=== PATIENT | male | born 1955 | race Caucasian/White ===

== ENCOUNTER 2022-04-08 15:55 | Emergency (ER) | payer BC, SELFPAY ==
[2022-04-08 16:11] VITALS: BP 155/87; PULSE 63; RESP 20; TEMP 36.6; O2SAT 96; BMI 45.9
--- NOTE | 2022-04-08 16:17 | ED_ITS ---
HPI - General Adult General Time Seen by Provider: 16:17 Date Seen: 04/08/22 Chief complaint: Extremity Pain/Injury, Upper Stated complaint: Pain Left hand and Wrist Time Seen by Provider: 04/08/22 15:56 Source: patient and RN notes reviewed Mode of arrival: ambulatory Limitations: no limitations History of Present Illness HPI narrative: Patient is a 66-year-old male that was referred in by the triage nurse from clinic. He has been having intermittent left finger/hand numbness and tingling like it has fallen asleep. Today he started noticing pain in the wrist area that went up just into the forearm. He takes his thumb and forefinger and points out a segment from the base of the hand to the distal left forearm where he was feeling some pain. The symptoms are intermittent. He was worried about a stroke, reports that the triage nurse told him to come in immediately. He is a diesel truck mechanic. He has noticed this with driving but not always. It is intermi ttent in nature. No motor component. He also notes that his chest is just felt heavy for the last maybe 4-5 days. He admits that he maybe thought about it more after starting to have these left wrist symptoms with pain. There is no cough or cold symptoms, no recent COVID diagnosis, no fevers chills, no shortness of breath, no sense of palpitations or irregular heartbeat. He states he recently had elevated blood pressure in clinic and they did do an echo, sounds as if it required definity. He states he was told that this looked good. He has had no prior cardiac history. 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 Does not have any known diagnosed cardiopulmonary issues to date. He does note that he has some chronic allergies which he has been to sheeter operator and they cannot define the etiology. Related Data Home Medications Medication Instructions Recorded Confirmed amlodipine 10 mg tablet mg 04/08/22 atenolol 100 mg tablet mg 04/08/22 cyclobenzaprine 10 mg tablet mg 04/08/22 fluticasone propionate 50 intranasal 04/08/22 mcg/actuation nasal spray,suspension furosemide 40 mg tablet mg 04/08/22 losartan 50 mg tablet mg 04/08/22 metformin 500 mg tablet mg 04/08/22 montelukast 10 mg tablet mg 04/08/22 naproxen 500 mg tablet mg 04/08/22 omeprazole 20 mg capsule,delayed mg 04/08/22 release sildenafil 100 mg tablet mg 04/08/22 simvastatin 10 mg tablet mg 04/08/22 terazosin 5 mg capsule mg 04/08/22 Allergies Allergy/AdvReac Type Severity Reaction Status Date / Time No Known Drug Allergies Allergy Verified 04/08/22 16:07 Review of Systems Status of ROS: Reports: 10 or more systems reviewed and unremarkable except as noted in History and below PFSH PFSH Social History Smoking Status: Unknown if ever smoked How often do you have a drink containing alcohol: never AUDIT-C Alcohol total score: 0 Non-prescribed substance use: denies use Exam Const: Vital Signs, click to edit/add: Vital Signs - 24 hr 04/08/22 16:11 04/08/22 17:34 Temperature 97.9 F 97.9 F Pulse Rate [Right Pulse Oximeter] 63 63 Respiratory Rate 20 20 Blood Pressure [Ri ght Upper Arm] 155/87 H 155/87 H Pulse Oximetry 96 Oxygen Delivery Me thod Room Air Documenting provider has reviewed patient's vital signs: yes Common normals: no apparent distress, oriented x3, no limitations, healthy appearing, alert and well nourished General appearance: cooperative, comfortable and well kempt Nutritional appearance: obese HENMT: Common normals: normocephalic, head/scalp atraumatic, hearing grossly normal bilaterally and external ears normal Head and scalp: normocephalic and atraumatic External ear: external ears normal Eye: Common normals: PERRL, EOMs intact bilaterally, conjunctivae normal and no scleral icterus Conjunctiva: conjunctiva(e) normal Pupil: PERRL Neck & C-Spine: Common normals: full ROM (Neck is very thick), no lymphadenopathy, supple, no meningeal signs, no JVD and thyroid normal Thyroid: thyroid normal Lymph: Lymphatic: no lymphadenopathy noted Resp: Common normals: normal respiratory effort, no retractions, no use of accessory muscles and clear to auscultation bilaterally Auscultation: clear to auscultation bilaterally Cardio: Common normals: no JVD, regular rate, regular rhythm, S1 normal heart sound, S2 normal heart sound, no gallops, no clicks and no murmurs Rate: reg ular rate Rhythm: regular rhythm Heart sounds: S1 normal and S2 normal Extremity: Other: Has about 2+ pitting edema of both lower extremities, symmetric, no overlying skin changes. On further questioning, patient states this edema will come and go. He does note changes with eating food and if his legs are dependent a lot with driving. This is not a new finding. Neuro: Moy Coma Scale: document GCS findings Moy coma scale eye opening: Spontaneous (4) [place] coma scale verbal response: Orientated (5) [place] coma scale motor response: Obey commands (6) [place] coma scale total score: 15 Common normals: oriented x3, CN's II-XII intact bilaterally, moves all extremities and gait normal Sensorium/orientation: alert Meningeal signs: no meningeal signs Other: Patient has positive Phalen's more so than Tinel's but Tinel's is positive on the left wrist. When he came in, was not have any numbness tingling and had normal sensation. Did develop numbness and tingling with the canals using repetitive tapping with a reflex hammer and a positive Phalen's on the left, negative on right. No noted muscle wasting, no weakness noted. Psych: Appearance: well kempt Skin: Common normals: no rashes or lesions noted, no wounds and skin turgor normal General skin exam: no rashes or lesions noted and turgor normal Course Course Hospital Course: Reviewed with patient that we could provide a wrist splint for initial treatment of the carpal tunnel but he declined. Reviewed with him that ultimately he needed to follow up with Orthopedics for further evaluation management. He states he can deal with the carpal tunnel, he is not worried about that. He was worried about having a stroke. Reviewed with him that his current arm symptoms are not from a stroke. We did go over stroke signs and symptoms. Did review with him that with his complaint of chest heaviness I did think we should proceed with some basic blood work included a troponin, EKG and chest x-ray. He is hemodynamically stable with just mildly elevated blood pressure not requiring any intervention. He is oxygenating excellently. He agrees to this evaluation. Reevaluation(s) Reevaluation #1: Reviewed with patient that is CBC, EKG, troponin and my preliminary review of his chest x-ray are without any acute pathology. He would like to go home. I certainly can contact him with any abnormalities in the radiology reading of the chest x-ray or with his metabolic panel. Am doubtful that there will be any significant issues which is why I will allow him to discharge before they are back. He did question why he had the sense of chest heaviness. It is possible it might just be his allergies which seem to be bothering him right now. I certainly do not appreciate any evidence of any infection or any abnormality on the chest x-ray. Again I will contact him if the radiologist sees anything. Time: 17:23 Vital Signs Vital signs: Initial Vital Signs Temperature 97.9 F 04/08/22 16:11 Temperature Source Temporal Artery Scan 04/08/22 16:11 Pulse Rate 63 04/08/22 16:11 Respiratory Rate 20 04/08/22 16:11 Blood Pressure 155/87 H 04/08/22 16:11 Blood Pressure Mean 109 04/08/22 16:11 Blood Pressure Position Sitting 04/08/22 16:11 Pulse Oximetry 96 04/08/22 16:11 Oxygen Delivery Method 04/08/22 16:11 Vital Signs Temperature 97.9 F 04/08/22 16:11 Pulse Rate 63 04/08/22 16:11 Respiratory Rate 20 04/08/22 16:11 Blood Pressure 155/87 H 04/08/22 16:11 Pulse Oximetry 96 04/08/22 16:11 Oxygen Delivery Method 04/08/22 16:11 Temperature 97.9 F 04/08/22 17:34 Pulse Rate 63 04/08/22 17:34 Respiratory Rate 20 04/08/22 17:34 Blood Pressure 155/87 H 04/08/22 17:34 Pulse Oximetry 96 04/08/22 16:11 Oxygen Delivery Method 04/08/22 16:11 Medical Decision Making Lab Data Lab results reviewed: Yes I reviewed the patient's lab results Labs: Lab Results 04/08/22 04/08/22 04/08/22 Range/Units 16:43 16:43 16:43 WBC 10.03 (4.50-11.00) K/uL RBC 4.81 (4.30-5.90) m/uL Hgb 14.6 (13.5-17.5) gm/dL Hct 43.1 (37.0-53.0) % MCV 90 (80-100) fL MCH 30 (26-34) pg MCHC 34 (32-36) gm/dL RDW Coeff of Kelvin 12.1 (11.5-15.5) % Plt Count 230 (140-440) K/uL Neut % (Auto) 65.6 (42.0-72.0) % Lymph % (Auto) 18.7 L (20-44) % [place]berry % (Auto) 11.1 H (0.0-11.0) % Eos % (Auto) 3.2 (0.0-7.0) % Baso % (Auto) 0.6 (0.0-3.0) % Neut # (Auto) 6.58 (1.7-7.0) K/uL Lymph # (Auto) 1.90 (0.90-2.90) K/uL [place]berry # (Auto) 1.10 H (0.00-0.90) K/UL Eos # (Auto) 0.32 (0.00-0.50) K/uL Baso # (Auto) 0.06 (0.00-0.30) K/uL Abs Immat Gran (auto) 0.08 (0.00-0.30) K/uL Sodium 135 (135-149) mmol/L Potassium 3.8 (3.6-5.1) mmol/L Chloride 100 (96-114) mmol/L Carbon Dioxide 25 (20-32) mmol/L BUN 15 (7-30) mg/dL Creatinine 0.9 (0.5-1.5) mg/dL Estimated Creat Clear 74.01 Estimated GFR 94 ml/min Glucose 101 (60-115) mg/dL Calcium 9.0 (8.4-10.6) mg/dL POC Troponin I 0.00 L (0.01-0.04) ng/ml Imaging Data Chest x-ray: Attestation: I have reviewed the pertinent imaging results. My impression: My preliminary review of his two-view chest x-ray is without any acute cardiopulmonary abnormality. Will await Radiology over-read. Radiologist's impression: Patient: BERNA NELSON Facility:?[facility] Patient ID:?[id number] Site Patient ID:?[id number]. Site :?[id number] Study:?XRay Chest 2 VIEW-04/08/2022 5:16:35 PM Ordering Physician:Martha Shaikh Final Report: INDICATION: Chest heaviness. TECHNIQUE: Chest 2 views. COMPARISON: None. FINDINGS: Cardiovascular and mediastinum: Heart size and vasculature are normal in caliber and appearance. Lungs and pleural spaces: Hazy right basilar airspace opacity favors atelectasis although developing consolidation could have a similar appearance but felt less likely. No sign of pleural effusion. No pneumothorax. Bones and soft tissues: No significant findings. IMPRESSION: Hazy right basilar airspace opacity favors atelectasis although developing consolidation could have a similar appearance but felt less likely. Otherwise, no acute cardiopulmonary process. Dictated by Joon Quiroz MD @ 04/08/2022 5:59:03 PM (Electronic Signature) Above reviewed. Patient has normal white blood count no cough, no respiratory symptoms. Complaint is global chest heaviness. Doubt that this is infectious. We will have him continue to follow up with his primary as planned. ECG Data Attestation: I personally reviewed and interpreted this ECG as follows: (Sinus rhythm, 60 beats per minute, QT corrected 430 milliseconds. No ischemia noted.) Prior ECG tracings: not available for review Critical Care Time Critical Care Time Critical Care Time: No Discharge Plan Discharge Clinical Impression: Chest heaviness, Acute carpal tunnel syndrome of left wrist Patient Disposition: Home, Self-Care Condition: Stable Instructions: Paresthesia (ED) Additional Instructions: Need to follow up with Orthopedics regarding the carpal tunnel. I do recommend that you consider getting a wrist splint which can be purchased [id number], wear this at night or with driving to help minimize carpal tunnel symptoms. Please schedule follow-up with your primary care provider, review blood pressure at that visit. Your blood pressure was mildly elevated here at 155/87. This may need to be followed to ensure that you are not developing hypertension. Need to talk to primary care provider about your symptom of chest heaviness and discuss any recommended further evaluation or workup as directed by your primary care provider. Activity Level: Activity as Tolerated Prescriptions: No Action losartan 50 mg tablet cyclobenzaprine 10 mg tablet furosemide 40 mg tablet terazosin 5 mg capsule metformin 500 mg tablet atenolol 100 mg tablet simvastatin 10 mg tablet sildenafil 100 mg tablet Label Comments: TAKE ONE TABLET BY MOUTH EVERY DAY NEEDED FOR ED. TAKE 30 MINUTES TO 4 HOURS BEFORE SEXUAL ACTIVITY. MAX OF 100MG IN 24 HOURS amlodipine 10 mg tablet omeprazole 20 mg capsule,delayed release(DR/EC) montelukast 10 mg tablet fluticasone propionate 50 mcg/actuation spray,suspension INTRANASAL naproxen 500 mg tablet Follow Up/Referrals: Joon Hamm MD [Primary Care Provider] - Stand Alone Forms: [email or web address] Info Instructions
--- NOTE | 2022-04-08 16:26 | CRLHL7_ITS ---
For Patients: As a result of the Century Cures Act, medical imaging exams and procedure reports are released immediately into your electronic medical record. You may view this report before your referring provider. If you have questions, please contact your health care provider. INDICATION: Chest heaviness. TECHNIQUE: Chest 2 views. COMPARISON: None. FINDINGS: Cardiovascular and mediastinum: Heart size and vasculature are normal in caliber and appearance. Lungs and pleural spaces: Hazy right basilar airspace opacity favors atelectasis although developing consolidation could have a similar appearance but felt less likely. No sign of pleural effusion. No pneumothorax. Bones and soft tissues: No significant findings. IMPRESSION: Hazy right basilar airspace opacity favors atelectasis although developing consolidation could have a similar appearance but felt less likely. Otherwise, no acute cardiopulmonary process. Dictated by Joon Quiroz MD @ 04/08/2022 5:59:03 PM (Electronically Signed)
[2022-04-08 17:01] LABS: Basophils Absolute Auto 0.06 K/uL (0.00-0.30); Basophils Percent Auto 0.6 % (0.0-3.0); Eosinophils Absolute Auto 0.32 K/uL (0.00-0.50); Eosinophils Percent Auto 3.2 % (0.0-7.0); Hematocrit 43.1 % (37.0-53.0); Hemoglobin* 14.6 gm/dL (13.5-17.5); Immature Granulocytes Abs Auto 0.08 K/uL (0.00-0.30); Lymphocytes Percent Auto 18.7 % (20-44); Mean Corpuscular HGB Conc 34 gm/dL (32-36); Mean Corpuscular Hemoglobin 30 pg (26-34); Mean Corpuscular Volume 90 fL (80-100); Monocytes Percent Auto 11.1 % (0.0-11.0); Neutrophils Absolute Auto 6.58 K/uL (1.7-7.0); Neutrophils Percent Auto 65.6 % (42.0-72.0); Platelet Count* 230 K/uL (140-440); RDW Coefficient of Variation % 12.1 % (11.5-15.5); Red Blood Count 4.81 m/uL (4.30-5.90); White Blood Count* 10.03 K/uL (4.50-11.00)
[2022-04-08 17:10] LABS: Slide Review Reflex No
[2022-04-08 17:16] LABS: Chloride* 100 mmol/L (96-114); Potassium* 3.8 mmol/L (3.6-5.1); Sodium* 135 mmol/L (135-149)
[2022-04-08 17:19] LABS: Blood Urea Nitrogen* 15 mg/dL (7-30); Carbon Dioxide* 25 mmol/L (20-32); Creatinine* 0.9 mg/dL (0.5-1.5); Est. Creatinine Clearance* 74.01; Estimated Glomerular Filt Rate 94 ml/min
[2022-04-08 17:20] LABS: Glucose* 101 mg/dL (60-115)
[2022-04-08 17:34] VITALS: BP 155/87; PULSE 63; RESP 20; TEMP 36.6
== END 2022-04-08 17:35 | disposition home or self-care (01) ==
PROVIDERS: Emergency Provider Family Medicine; PCP Family Medicine
DX: G56.02 Carpal tunnel syndrome, left upper limb (principal); R07.9 Chest pain, unspecified
CPT/HCPCS: 36415; 71046; 80048; 84484; 85025; 93005; 99283; 99284

== ENCOUNTER 2022-10-12 07:47 | Outpatient (CLI) | payer BC, SELFPAY ==
--- NOTE | 2022-10-12 08:51 | W.ANESCHARGE ---
Anesthesia Charges Start Date/Time Anesthesia Start Date: 10/12/22 Anesthesia Start Time: 08:43 Stop Date/Time Anesthesia Stop Date: 10/12/22 Anesthesia Stop Time: 09:22
--- NOTE | 2022-10-12 09:24 | W.ANESCHARGE ---
Anesthesia Charges Start Date/Time Anesthesia Start Date: 10/12/22 Anesthesia Start Time: 08:43 Stop Date/Time Anesthesia Stop Date: 10/12/22 Anesthesia Stop Time: 09:22
== END 2022-10-12 07:48 | disposition home or self-care (01) ==
LOC: OP CLINIC 07:48
PROVIDERS: Visit Provider Internal Medicine Gastroenterology
DX: Z12.11 Encounter for screening for malignant neoplasm of colon (principal); K63.5 Polyp of colon; Q43.8 Other specified congenital malformations of intestine; Z86.010 Personal history of colon polyps
CPT/HCPCS: 45385; 811; 812; 88305; J2704